=== PATIENT | male | born 1950 | race Caucasian/White ===

== ENCOUNTER 2017-12-07 16:31 | Emergency (ER) | payer MEDICARE ==
[~2017-12-07] VITALS: Ht 177.8 cm; Wt 75.0 kg
[~2017-12-07 16:31] MED LIST: ARA20T PO; COU1T PO; FERR-86 PO; HYDR-3964 PO; LANS30CA37 PO; MULT1TAB74 PO; OXYC10TA47 PO; PRED5TAB PO
[2017-12-07 16:56] VITALS: BP 148/84
== END 2017-12-07 16:58 | disposition home or self-care (01) ==
LOC: ER 16:32
DX: T17.228A Food in pharynx causing other injury, initial encounter (principal); I48.91 Unspecified atrial fibrillation; M06.9 Rheumatoid arthritis, unspecified; Z95.0 Presence of cardiac pacemaker; Z86.73 Personal history of transient ischemic attack (TIA), and cerebral infarction without residual deficits; Z79.01 Long term (current) use of anticoagulants; X58.XXXA Exposure to other specified factors, initial encounter; Y93.89 Activity, other specified; Y92.89 Other specified places as the place of occurrence of the external cause; Y99.8 Other external cause status
CPT/HCPCS: 99284

== ENCOUNTER 2020-12-23 20:25 | Emergency (ER) | payer BC, MEDICARE ==
[~2020-12-23] VITALS: Ht 177.8 cm; Wt 68.2 kg
[~2020-12-23 20:25] MED LIST changes: +MULT-620 PO; -MULT1TAB74 PO
[2020-12-23 20:28] VITALS: BP 144/70
== END 2020-12-23 20:59 | disposition home or self-care (01) ==
LOC: ER 20:26
DX: T17.228A Food in pharynx causing other injury, initial encounter (principal); Z91.013 Allergy to seafood; Z79.01 Long term (current) use of anticoagulants; Z79.899 Other long term (current) drug therapy; Z86.79 Personal history of other diseases of the circulatory system; I48.91 Unspecified atrial fibrillation; M06.9 Rheumatoid arthritis, unspecified; Z85.47 Personal history of malignant neoplasm of testis; Z95.0 Presence of cardiac pacemaker; X58.XXXA Exposure to other specified factors, initial encounter; Y93.89 Activity, other specified; Y92.89 Other specified places as the place of occurrence of the external cause; Y99.8 Other external cause status
CPT/HCPCS: 99281

== ENCOUNTER 2024-05-20 19:38 | Emergency (ER) | payer MEDICARE, MEDICAID ==
[~2024-05-20] VITALS: Ht 180.3 cm; Wt 50.0 kg
[2024-05-20 20:30] LABS: BASOPHILS # (AUTO) 0.1 X10'3 (0-0.2); BASOPHILS % (AUTO) 0.7 % (0-1); EOSINOPHILS # (AUTO) 0.2 X10'3 (0-0.9); EOSINOPHILS % (AUTO) 2.4 % (0-6); HEMATOCRIT 30.4 % (42.0-52.0); HEMOGLOBIN 9.9 g/dl (14.0-17.9); LYMPHOCYTES # (AUTO) 1.3 X10'3 (1.1-4.8); LYMPHOCYTES % (AUTO) 17.5 % (21-51); MEAN CORPUSCULAR HEMOGLOBIN 24.9 PG (27.0-31.0); MEAN CORPUSCULAR HGB CONC 32.5 g/dL (33.0-36.5); MEAN CORPUSCULAR VOLUME 76.5 FL (78-98); MEAN PLATELET VOLUME 7.5 FL (7.4-10.4); MONOCYTES # (AUTO) 0.4 X10'3 (0-0.9); MONOCYTES % (AUTO) 6.1 % (2-12); NEUTROPHILS # (AUTO) 5.3 X10'3 (1.8-7.7); NEUTROPHILS % (AUTO) 73.3 % (42-75); PLATELET COUNT 305 X10'3 (140-440); RED BLOOD COUNT 3.98 X10'6 (4.70-6.10); RED CELL DISTRIBUTION WIDTH 18.9 % (11.5-14.5); WHITE BLOOD COUNT 7.2 X10'3 (4.5-11.0)
[2024-05-20 20:53] LABS: ALANINE AMINOTRANSFERASE 16 U/L (12-78); ALBUMIN 2.7 G/DL (3.4-5.0); ALBUMIN/GLOBULIN RATIO 0.7 (1.1-1.5); ALKALINE PHOSPHATASE 70 IU/L (46-116); ANION GAP 7 (8-16); ASPARTATE AMINO TRANSFERASE 10 U/L (10-37); BILIRUBIN,TOTAL 0.3 MG/DL (0.1-1.0); BLOOD UREA NITROGEN 11 MG/DL (7-18); BUN/CREATININE RATIO 12.1 (10.0-20.0); CALCIUM 8.9 MG/DL (8.5-10.1); CHLORIDE 102 MMOL/L (99-107); CREATININE 0.91 MG/DL (0.60-1.10); POTASSIUM 3.9 MMOL/L (3.5-5.1); SODIUM 138 MMOL/L (135-145); TOTAL CARBON DIOXIDE 28.7 MMOL/L (24-32); TOTAL PROTEIN 6.8 G/DL (6.4-8.2); eCRCL 50 ML/MIN; eGFR 81 ML/MIN
[2024-05-20 21:01] LABS: GLUCOSE 137 MG/DL (70-104)
[2024-05-20 21:06] LABS: ANISOCYTOSIS 2+; ELLIPTOCYTES FEW; HYPOCHROMASIA 1+; MICROCYTOSIS 1+; PLATELET ESTIMATE NORMAL
[2024-05-20 22:31] VITALS: TEMP 97.5
[2024-05-20 23:12] VITALS: BP 160/72; PULSE 70; RESP 12; O2SAT 99
== END 2024-05-20 23:08 | disposition home or self-care (01) ==
LOC: ER 19:39
DX: K43.9 Ventral hernia without obstruction or gangrene (principal); K46.9 Unspecified abdominal hernia without obstruction or gangrene; G45.9 Transient cerebral ischemic attack, unspecified; I48.91 Unspecified atrial fibrillation; C62.90 Malignant neoplasm of unspecified testis, unspecified whether descended or undescended; Z91.013 Allergy to seafood; Z79.899 Other long term (current) drug therapy
CPT/HCPCS: 80053; 85008; 85025; 99284

== ENCOUNTER 2024-05-28 12:40 | Emergency (ER) | payer MEDICARE, MEDICAID ==
[~2024-05-28] VITALS: Ht 172.7 cm; Wt 55.6 kg
[2024-05-28 15:33] LABS: BILIRUBIN,URINE NEGATIVE (Neg); CLARITY,URINE CLOUDY (Clear); COLOR,URINE STRAW (Yellow); GLUCOSE, URINE NEGATIVE (Neg); KETONES,URINE NEGATIVE (Neg); LEUKOCYTE ESTERASE ,URINE LARGE (Neg); NITRITES, URINE POSITIVE (Neg); OCCULT BLOOD,URINE SMALL (Neg); PROTEIN,URINE NEGATIVE (Neg); UROBILINOGEN,URINE 0.2 E.U/dL (0.2-1.0)
[2024-05-28 15:39] LABS: UA COLLECTION TYPE FOLEY CATH
[2024-05-28 15:40] LABS: BACTERIA,URINE 3+ /HPF (Neg); MUCUS STRANDS NONE SEEN /LPF (Neg); SQUAMOUS EPITHELIAL CELL,UR NONE SEEN /LPF (FEW); WBC CLUMPS,URINE MODERATE /HPF (NEGATIVE); WBC,URINE TNTC /HPF (0-4)
[2024-05-28] MEDS: CefTRIAXone 2gm/D5W 50ml BAG 50 ML IV ONE (16:10)
[2024-05-28] MEDS: CefTRIAXone 1000mg IM Kit (w/lidocaine diluent) IM ONE (16:22)
[2024-05-28 19:09] VITALS: BP 116/77; PULSE 67; RESP 16; TEMP 98; O2SAT 99
== END 2024-05-28 19:11 | disposition home or self-care (01) ==
LOC: ER 12:42
DX: N39.0 Urinary tract infection, site not specified (principal); R10.30 Lower abdominal pain, unspecified; Z91.013 Allergy to seafood
CPT/HCPCS: 74176; 81001; 87077; 87088; 87186; 96372; 99291; A4314; J0696